=== PATIENT | female | born 1985 | race Caucasian/White ===

== ENCOUNTER 2017-09-18 09:41 | Emergency (ER) | payer SELFPAY ==
[~2017-09-18] VITALS: Ht 157.5 cm; Wt 50.3 kg
--- NOTE | 2017-09-18 09:55 | NUR ---
Per patient's boyfriend, "There's worm with a head inside her." Pelvic exam supplies are at bedside.
[2017-09-18] MEDS ORDERED: ADDERALL (10:00)
[2017-09-18] MEDS ORDERED: LYRICA (10:00)
[2017-09-18] MEDS ORDERED: PROZAC (10:00)
[2017-09-18] MEDS ORDERED: WELLBUTRIN (10:00)
[2017-09-18] MEDS ORDERED: FLUCONAZOLE 100 MG TABLET PO ONE (10:30)
[2017-09-18] MEDS ORDERED: FLUCONAZOLE 100 MG TABLET ONE (10:35)
--- NOTE | 2017-09-18 10:39 | NUR ---
Patient discharged to home in stable conditon with brisk steady gait. Written and verbal after care instructions given to patient and patient's boyfriend. Patient and significant other verbalized understanding of instructions.
== END 2017-09-18 10:40 | disposition home or self-care (01) ==
LOC: ER 09:41
DX: B37.3 Candidiasis of vulva and vagina (principal); Z79.899 Other long term (current) drug therapy
CPT/HCPCS: 99283; A4663